=== PATIENT | female | born 1995 | race American Indian/Alaskan Native ===

== ENCOUNTER 2016-12-01 22:20 | Emergency (ER) | payer OTHER ==
[2016-12-01 22:38] VITALS: BP 116/81
--- NOTE | 2016-12-01 22:50 | EDM.PDOC ---
ED HPI GENERAL MEDICAL PROBLEM - General Chief Complaint: Flank Pain Stated Complaint: ABD/BACK SPASMS,[id number] Time Seen by Provider: 12/01/16 22:40 Source of Information: Reports: Patient History Limitations: Reports: No Limitations - History of Present Illness INITIAL COMMENTS - FREE TEXT/NARRATIVE: This 21 yo female patient reports to the ED with a 2 day history of flank pain and frequent urination. The patient reports she came into the ED this evening because the pain got too bad. The patient reports she has not been seen in the clinic and has not attempted to get a clinic appointment. The patient reports no similar symptoms in the past. The patient reports she has taken Tylenol, but has not had any pain relief. Onset Date: 11/29/16 Duration: Constant, Getting Worse Location: Reports: Abdomen, Back (bilateral flank) Quality: Reports: Ache, Sharp Severity: Severe Improves with: Reports: None Worsens with: Reports: None Associated Symptoms: Reports: No Other Symptoms Treatments MEDICATION CARE MANAGER: Reports: Acetaminophen Flank Pain Score (Numeric/FACES): 9 - Related Data Allergies Allergy/AdvReac Type Severity Reaction Status Date / Time No Known Allergies Allergy Verified 12/01/16 22:38 Home Meds: Home Meds . [No Known Home Meds] 12/01/16 [History] Past Medical History - Past Health History Medical/Surgical History: Denies Medical/Surgical History Social & Family History - Tobacco Use Smoking Status *Q: Current Every Day Smoker Years of Tobacco use: 3 Packs/Tins Daily: 4 - Caffeine Use Caffeine Use: Reports: Coffee, Energy Drinks, Soda, Tea - Recreational Drug Use Recreational Drug Use: No ED ROS GENERAL - Review of Systems Review Of Systems: ROS reveals no pertinent complaints other than HPI. ED EXAM, GI/ABD - Physical Exam Exam: See Below Exam Limited By: No Limitations General Appearance: Alert, WD/WN, Moderate Distress Eyes: Bilateral: Normal Appearance, EOMI Ears: Normal External Exam, Normal Canal, Hearing Grossly Normal, Normal TMs Nose: Normal Inspection, Normal Mucosa, No Blood Throat/Mouth: Normal Inspection, Normal Lips, Normal Teeth, Normal Gums, Normal Oropharynx, Normal Voice, No Airway Compromise Head: Atraumatic, Normocephalic Neck: Normal Inspection, Supple, Non-Tender, Full Range of Motion Respiratory/Chest: No Respiratory Distress, Lungs Clear, Normal Breath Sounds, No Accessory Muscle Use, Chest Non-Tender Cardiovascular: Normal Peripheral Pulses, Regular Rate, Rhythm, No Edema, No Gallop, No JVD, No Murmur, No Rub GI/Abdominal Exam: Normal Bowel Sounds, Soft, No Organomegaly, No Distention, No Abnormal Bruit, No Mass, Pelvis Stable, Tender (diffuse tenderness to palpation ) (Female) Exam: Deferred Rectal (Female) Exam: Deferred Back Exam: CVA Tenderness (L), CVA Tenderness (R) Extremities: Normal Inspection, Normal Range of Motion, Non-Tender, Normal Capillary Refill, No Pedal Edema Neurological: Alert, Oriented, CN II-XII Intact, Normal Cognition, Normal Gait, Normal Reflexes, No Motor/Sensory Deficits Psychiatric: Normal Affect, Normal Mood Skin Exam: Warm, Dry, Intact, Normal Color, No Rash Lymphatic: No Adenopathy Course - Vital Signs Last Recorded V/S: Last Vital Signs Temp 36.5 C 12/01/16 22:29 Pulse 96 12/01/16 22:29 Resp 17 12/01/16 22:29 BP 116/81 12/01/16 22:29 Pulse Ox 100 12/01/16 22:29 - Orders/Labs/Meds Orders: Active Orders 24 hr Category Date Time Status CULTURE URINE [RM] Stat Lab 12/02/16 00:08 Ordered Labs: Laboratory Tests 12/01/16 12/01/16 12/01/16 Range/Units 22:50 22:50 23:41 WBC 13.5 H (5.0-10.0) 10^3/uL RBC 4.60 (4.2-5.4) 10^6/uL Hgb 13.7 (12.0-16.0) g/dL Hct 40.4 (37.0-47.0) % MCV 87.8 (80-100) fL MCH 29.8 (27.0-34.0) pg MCHC 33.9 (33.0-35.0) g/dL Plt Count 211 (150-450) 10^3/uL Neut % (Auto) 74.8 (42.2-75.2) % Lymph % (Auto) 15.2 L (20.5-50.1) % [place] % (Auto) 9.1 H (2-8) % Eos % (Auto) 0.5 L (1.0-3.0) % Baso % (Auto) 0.4 (0.0-1.0) % Sodium 142 (135-145) mmol/L Potassium 3.7 (3.6-5.0) mmol/L Chloride 107 (101-111) mmol/L Carbon Dioxide 24.0 (21.0-31.0) mmol/L Anion Gap 14.7 BUN 8 (7-18) mg/dL Creatinine 0.6 (0.6-1.3) mg/dL Est Cr Clr Drug Dosing 122.69 mL/min Estimated GFR (MDRD) > 60 BUN/Creatinine Ratio 13.33 Glucose 117 H (74-105) mg/dL Calcium 9.2 (8.4-10.2) mg/dl Total Bilirubin 0.5 (0.2-1.0) mg/dL AST 27 (10-42) IU/L ALT 20 (10-60) IU/L Alkaline Phosphatase 70 (42-121) IU/L Total Protein 7.0 (6.7-8.2) g/dl Albumin 4.0 (3.2-5.5) g/dl Globulin 3.0 Albumin/Globulin Ratio 1.33 Amylase 35 (28-100) U/L Lipase 16 L (22-51) U/L Urine Color (YELLOW) Urine Appearance (CLEAR) Urine pH (5.0-9.0) Ur Specific [place] (1.005-1.030) Urine Protein (NEGATIVE) Urine Glucose (UA) (NEGATIVE) Urine Ketones (NEGATIVE) Urine Occult Blood (NEGATIVE) Urine Nitrite (NEGATIVE) Urine Bilirubin (NEGATIVE) Urine Urobilinogen (0.2-1.0) mg/dL Ur Leukocyte Esterase (NEGATIVE) Urine RBC /HPF Urine WBC (0-5/HPF) /HPF Ur Epithelial Cells /HPF Urine Bacteria (0-FEW/HPF) /HPF Urine HCG, Qual Urine Opiates Screen Negative (NEGATIVE) Ur Oxycodone Screen Negative (NEGATIVE) Urine Methadone Screen Negative (NEGATIVE) Ur Barbiturates Screen Negative (NEGATIVE) U Tricyclic Antidepress Negative (NEGATIVE) Ur Phencyclidine Scrn Negative (NEGATIVE) Ur Amphetamine Screen Negative (NEGATIVE) U Methamphetamines Scrn Negative (NEGATIVE) Urine MDMA Screen Negative (NEGATIVE) U Benzodiazepines Scrn Negative (NEGATIVE) Urine Cocaine Screen Negative (NEGATIVE) U Marijuana (THC) Screen Negative (NEGATIVE) 12/01/16 12/01/16 Range/Units 23:41 23:41 WBC (5.0-10.0) 10^3/uL RBC (4.2-5.4) 10^6/uL Hgb (12.0-16.0) g/dL Hct (37.0-47.0) % MCV (80-100) fL MCH (27.0-34.0) pg MCHC (33.0-35.0) g/dL Plt Count (150-450) 10^3/uL Neut % (Auto) (42.2-75.2) % Lymph % (Auto) (20.5-50.1) % [place] % (Auto) (2-8) % Eos % (Auto) (1.0-3.0) % Baso % (Auto) (0.0-1.0) % Sodium (135-145) mmol/L Potassium (3.6-5.0) mmol/L Chloride (101-111) mmol/L Carbon Dioxide (21.0-31.0) mmol/L Anion Gap BUN (7-18) mg/dL Creatinine (0.6-1.3) mg/dL Est Cr Clr Drug Dosing mL/min Estimated GFR (MDRD) BUN/Creatinine Ratio Glucose (74-105) mg/dL Calcium (8.4-10.2) mg/dl Total Bilirubin (0.2-1.0) mg/dL AST (10-42) IU/L ALT (10-60) IU/L Alkaline Phosphatase (42-121) IU/L Total Protein (6.7-8.2) g/dl Albumin (3.2-5.5) g/dl Globulin Albumin/Globulin Ratio Amylase (28-100) U/L Lipase (22-51) U/L Urine Color Yellow (YELLOW) Urine Appearance Turbid (CLEAR) Urine pH 7.0 (5.0-9.0) Ur Specific [place] 1.020 (1.005-1.030) Urine Protein >=300 H (NEGATIVE) Urine Glucose (UA) Negative (NEGATIVE) Urine Ketones Negative (NEGATIVE) Urine Occult Blood Large H (NEGATIVE) Urine Nitrite Negative (NEGATIVE) Urine Bilirubin Negative (NEGATIVE) Urine Urobilinogen 4.0 H (0.2-1.0) mg/dL Ur Leukocyte Esterase Moderate H (NEGATIVE) Urine RBC 5-10 H /HPF Urine WBC Packed H (0-5/HPF) /HPF Ur Epithelial Cells Moderate H /HPF Urine Bacteria Many H (0-FEW/HPF) /HPF Urine HCG, Qual Negative Urine Opiates Screen (NEGATIVE) Ur Oxycodone Screen (NEGATIVE) Urine Methadone Screen (NEGATIVE) Ur Barbiturates Screen (NEGATIVE) U Tricyclic Antidepress (NEGATIVE) Ur Phencyclidine Scrn (NEGATIVE) Ur Amphetamine Screen (NEGATIVE) U Methamphetamines Scrn (NEGATIVE) Urine MDMA Screen (NEGATIVE) U Benzodiazepines Scrn (NEGATIVE) Urine Cocaine Screen (NEGATIVE) U Marijuana (THC) Screen (NEGATIVE) Meds: Medications Discontinued Medications Generic Name Dose Route Start Last Admin Trade Name Derianq PRN Reason Stop Dose Admin Sodium Chloride 1,000 mls @ 999 mls/hr 12/01/16 23:00 12/01/16 23:07 Normal Saline IV 12/02/16 00:00 999 mls/hr .BOLUS ONE Administration Ceftriaxone Sodium 1 gm/ 50 mls @ 100 mls/hr 12/01/16 23:54 12/02/16 00:15 Sodium Chloride IV 12/02/16 00:23 100 mls/hr ONETIME ONE Administration Ketorolac Tromethamine 30 mg 12/01/16 23:54 12/02/16 00:02 Toradol IVPUSH 12/01/16 23:55 30 mg ONETIME ONE Administration Departure - Departure Time of Disposition: 00:49 Disposition: Home, Self-Care 01 Condition: Fair Clinical Impression: UTI (urinary tract infection) Qualifiers: Urinary tract infection type: site unspecified Hematuria presence: with hematuria Qualified Code(s): N39.0 - Urinary tract infection, site not specified - Discharge Information Instructions: Urinary Tract Infection, Adult, [id number] Forms: ED Department Discharge Care Plan Goals: The patient was advised of the examination, lab and CT results during the visit. The patient was given an IV dose of Toradol, IV Rocephin and oral Pyridium while in the ED. The patient was discharged with a script for Keflex ( 500 mg) #14 to take 1 by mouth 2 times per day for 7 days and Pyridium (200 mg) #6 to take 1 by mouth 3 times per day for 2 days. If the patient has any additional symptoms or concerns, the patient should follow-up with his primary care facility or return to the emergency department. - My Orders Last 24 Hours: My Active Orders 12/02/16 00:08 CULTURE URINE [RM] Stat - Assessment/Plan Last 24 Hours: My Active Orders 12/02/16 00:08 CULTURE URINE [RM] Stat
[2016-12-01] MEDS ORDERED: Sodium Chloride 0.9% 1,000 ML IV ONE (23:00)
[2016-12-01 23:16] LABS: CHLORIDE,CL 107 mmol/L (101-111); SODIUM,NA 142 mmol/L (135-145)
[2016-12-01] MEDS ORDERED: cefTRIAXone 1 GM in Sodium Chloride 0.9% 50 ML IV ONE (23:54)
[2016-12-01] MEDS ORDERED: Ketorolac 30 MG/ML SDV IVPUSH ONE (23:54)
[2016-12-02] MEDS ORDERED: Phenazopyridine 95 MG Tab PO ONE (00:48)
== END 2016-12-02 01:01 | disposition home or self-care (01) ==
LOC: DL.ED 22:20
DX: N39.0 Urinary tract infection, site not specified (principal); F17.210 Nicotine dependence, cigarettes, uncomplicated
CPT/HCPCS: 36415; 74176; 80053; 80305; 81001; 81025; 82150; 83690; 85025; 87086; 96365; 96367; 96375; 99284; A9270; J0696; J1885; J7030; J7050; 87088; 87186

== ENCOUNTER 2017-03-02 08:09 | Emergency (ER) | payer MEDICAID, OTHER ==
[2017-03-02 08:32] VITALS: BP 105/63
--- NOTE | 2017-03-02 08:43 | EDM.PDOCBH ---
ED HPI GENERAL MEDICAL PROBLEM - General Chief Complaint: MIXER WHIPPED TOPPING Problem Stated Complaint: CRAMPING, 11 WKS PG Time Seen by Provider: 03/02/17 08:30 Source of Information: Reports: Patient, RN, RN Notes Reviewed History Limitations: Reports: No Limitations - History of Present Illness INITIAL COMMENTS - FREE TEXT/NARRATIVE: Pt presents to the clinic with c/o anxiety/depression and pelvic/abdominal cramping. She is very tearful when discussing her depression and anxiety. She states she stopped taking any antidepressant, and that she is 10-11 weeks . She states she sees Melly Verduzco at [facility]. She denies suicidal ideation. When asked if she felt the abdominal cramping accompanied the anxiety, she states she feels it does. Patient denies any previous miscarriages, and has one child. LMP "November", not aware of specific date. Onset: Gradual - Related Data Allergies Allergy/AdvReac Type Severity Reaction Status Date / Time soap Allergy Hives Verified 03/02/17 08:20 Home Meds: Home Meds Pnv No.122/Iron/Folic Acid [ Multi Tablet] 1 tab PO DAILY 03/02/17 [ History] Past Medical History - Past Health History Medical/Surgical History: Denies Medical/Surgical History - Past Surgical History HEENT Surgical History: Reports: Tonsillectomy Social & Family History - Tobacco Use Smoking Status *Q: Never Smoker Years of Tobacco use: 3 Packs/Tins Daily: 4 Second Hand Smoke Exposure: No - Caffeine Use Caffeine Use: Reports: Soda, Tea - Recreational Drug Use Recreational Drug Use: No ED ROS GENERAL - Review of Systems Review Of Systems: ROS reveals no pertinent complaints other than HPI. ED EXAM, BEHAVIORAL HEALTH - Physical Exam Exam: See Below Exam Limited By: No Limitations General Appearance: Alert, WD/WN, No Apparent Distress Eye Exam: Bilateral Eye: Normal Inspection Ears: Normal External Exam, Hearing Grossly Normal Nose: Normal Inspection Throat/Mouth: Normal Inspection, Normal Voice, No Airway Compromise Head: Atraumatic, Normocephalic Neck: Normal Inspection, Supple, Non-Tender, Full Range of Motion Respiratory/Chest: No Respiratory Distress, Lungs Clear, Normal Breath Sounds, No Accessory Muscle Use, Chest Non-Tender Cardiovascular: Normal Peripheral Pulses, Regular Rate, Rhythm, No Edema, No Gallop, No JVD, No Murmur, No Rub GI/Abdominal: Normal Bowel Sounds, Soft, Non-Tender, No Distention (Female) Exam: Deferred Rectal (Female) Exam: Deferred Back Exam: Normal Inspection, Full Range of Motion Extremities: Normal Inspection, Normal Range of Motion, Non-Tender, No Pedal Edema, Normal Capillary Refill Neurological: Alert, Normal Mood/Affect, Normal Cognition, Normal Gait, No Motor /Sensory Deficits, Oriented x 3 Psychiatric: Alert, Normal Cognition, Oriented, Depressed Mood, Tearful Skin Exam: Warm, Dry, Intact, Normal color, No rash COURSE, BEHAVIORAL HEALTH COMP - Course Vital Signs: Last Vital Signs Temp 98 F 03/02/17 08:31 Pulse 72 03/02/17 08:31 Resp 18 03/02/17 08:31 BP 105/63 03/02/17 08:31 Pulse Ox 100 03/02/17 08:31 Orders, Labs, Meds: Active Orders 24 hr Category Date Time Status OB Ltd 1 or More Fetus [US] Urgent Exams 03/02/17 10:01 Taken Laboratory Tests 03/02/17 03/02/17 03/02/17 Range/Units 08:14 08:14 09:05 HCG, Quant > 1371 H (0-25) mIU/ml Beta HCG, Quant 923372 mIU/ml Urine Color Yellow (YELLOW) Urine Appearance Clear (CLEAR) Urine pH 7.0 (5.0-9.0) Ur Specific [place] 1.025 (1.005-1.030) Urine Protein Negative (NEGATIVE) Urine Glucose (UA) Negative (NEGATIVE) Urine Ketones Negative (NEGATIVE) Urine Occult Blood Negative (NEGATIVE) Urine Nitrite Negative (NEGATIVE) Urine Bilirubin Negative (NEGATIVE) Urine Urobilinogen 1.0 (0.2-1.0) mg/dL Ur Leukocyte Esterase Negative (NEGATIVE) Urine RBC 0-5 /HPF Urine WBC 0-5 (0-5/HPF) /HPF Ur Epithelial Cells Many H /HPF Urine Bacteria Rare (0-FEW/HPF) /HPF Urine Mucus Rare /LPF Urine HCG, Qual Positive Re-Assessment/Re-Exam: OB Ultrasound: See rad report Patient wants to leave prior to results on the OB ultrasound. She states we can call her on her cell phone with any results. Departure - Departure Time of Disposition: 11:35 Disposition: Home, Self-Care 01 Condition: Fair Clinical Impression: related bilateral lower abdominal cramping, antepartum, Pain of round ligament during , Depression affecting in first trimester, antepartum, Anxiety - Discharge Information Instructions: Round Ligament Pain, First Trimester of , [id number], Panic Attacks, [id number] Forms: ED Department Discharge Additional Instructions: Go to [facility] today and ask to be seen at Behavioral Health Follow up with Melly Verduzco - My Orders Last 24 Hours: My Active Orders 03/02/17 10:01 OB Ltd 1 or More Fetus [US] Urgent - Assessment/Plan Last 24 Hours: My Active Orders 03/02/17 10:01 OB Ltd 1 or More Fetus [US] Urgent
--- NOTE | 2017-03-02 12:06 | US ---
Clinical history: 21-year-old gravid 2 para 1 Female with estimated date of delivery 20 Sep 2017 and "cramping". Interpretation: Uterus enlarged with a clearly demonstrated central gestational sac, uniformly thick chorionic "rind" and a live ( heart rate 160 bpm) "active" intrauterine . [place]-rump length 4.06 cm approximates 11 week gestation. No adnexal mass lesions or free fluid in the cul-de-sac. Right ovary measures 1.5 x 1.6 x 1.5 cm Left ovary measures 1.8 x 1.8 x 2.3 cm. Placenta appears to be forming posteriorly, away from the cervical os. CONCLUSION: Single live 11 week first trimester intrauterine gestation.
== END 2017-03-02 11:44 | disposition home or self-care (01) ==
LOC: DL.ED 08:09
DX: O26.891 Other specified pregnancy related conditions, first trimester (principal); R10.31 Right lower quadrant pain; R10.32 Left lower quadrant pain; R10.2 Pelvic and perineal pain; O99.341 Other mental disorders complicating pregnancy, first trimester; F32.9 Major depressive disorder, single episode, unspecified; Z91.048 Other nonmedicinal substance allergy status; Z3A.11 11 weeks gestation of pregnancy
CPT/HCPCS: 36415; 76815; 81001; 81025; 84702; 99284

== ENCOUNTER 2017-04-22 13:47 | Emergency (ER) | payer MEDICAID ==
[2017-04-22 15:02] VITALS: BP 107/52
--- NOTE | 2017-04-22 17:47 | EDM.PDOC ---
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 She has had blood with wiping x1 today. Her last last menstrual period was December 15 with an EDC of September 20. She is approximately 18 weeks this week. Onset: Today Duration: Constant Location: Reports: Abdomen Quality: Reports: Ache Severity: Moderate Improves with: Reports: None Worsens with: Reports: None Associated Symptoms: Reports: No Other Symptoms Treatments DATA BASE ADMINISTRATOR: Reports: NSAIDS Lower Abdomen Pain Score (Numeric/FACES): 9 - Related Data Allergies Allergy/AdvReac Type Severity Reaction Status Date / Time soap Allergy Hives Verified 04/22/17 14:07 Home Meds: Home Meds Pnv No.122/Iron/Folic Acid [ Multi Tablet] 1 tab PO DAILY 03/02/17 [ History] Past Medical History - Past Health History Medical/Surgical History: Denies Medical/Surgical History - Past Surgical History HEENT Surgical History: Reports: Tonsillectomy Social & Family History - Tobacco Use Smoking Status *Q: Current Every Day Smoker Years of Tobacco use: 4 Packs/Tins Daily: 0.3 Second Hand Smoke Exposure: No - Caffeine Use Caffeine Use: Reports: Soda - Recreational Drug Use Recreational Drug Use: No ED ROS GENERAL - Review of Systems Review Of Systems: ROS reveals no pertinent complaints other than HPI. ED EXAM - Physical Exam Exam: See Below Exam Limited By: No Limitations General Appearance: Alert, WD/WN, No Apparent Distress Eye Exam: Bilateral Eye: Normal Inspection Ears: Normal External Exam, Normal Canal, Hearing Grossly Normal, Normal TMs Nose: Normal Inspection, Normal Mucosa, No Blood Throat/Mouth: Normal Inspection, Normal Lips, Normal Teeth, Normal Gums, Normal Oropharynx, Normal Voice, No Airway Compromise Head: Atraumatic Neck: Normal Inspection, Supple, Non-Tender, Full Range of Motion Respiratory/Chest: No Respiratory Distress, Lungs Clear, Normal Breath Sounds, No Accessory Muscle Use, Chest Non-Tender Cardiovascular: Normal Peripheral Pulses, Regular Rate, Rhythm, No Edema, No Gallop, No JVD, No Murmur, No Rub GI/Abdominal Exam: Other (RLQ and upper quadrant. Round ligament pain.) Rectal Exam: Deferred Heart Tones: Present Heart Tones per Min: 152 Movement: Not Appreciated Back Exam: Normal Inspection, Full Range of Motion, NT Extremities: Normal Inspection, Normal Range of Motion, Non-Tender, Normal Capillary Refill, No Pedal Edema Neurological: Alert, Oriented, CN II-XII Intact, Normal Cognition, Normal Gait, Normal Reflexes, No Motor/Sensory Deficits Psychiatric: Normal Affect, Normal Mood Skin Exam: Warm Lymphatic: No Adenopathy Course - Vital Signs Last Recorded V/S: Last Vital Signs Temp 98.0 F 04/22/17 15:01 Pulse 64 04/22/17 15:01 Resp 18 04/22/17 15:01 BP 107/52 L 04/22/17 15:01 Pulse Ox 100 04/22/17 15:01 - Orders/Labs/Meds Labs: Laboratory Tests 04/22/17 Range/Units 13:52 Urine Color Yellow (YELLOW) Urine Appearance Clear (CLEAR) Urine pH 6.5 (5.0-9.0) Ur Specific [place] 1.025 (1.005-1.030) Urine Protein Negative (NEGATIVE) Urine Glucose (UA) Negative (NEGATIVE) Urine Ketones Negative (NEGATIVE) Urine Occult Blood Trace-intact H (NEGATIVE) Urine Nitrite Negative (NEGATIVE) Urine Bilirubin Negative (NEGATIVE) Urine Urobilinogen 1.0 (0.2-1.0) mg/dL Ur Leukocyte Esterase Negative (NEGATIVE) Urine RBC 0-5 /HPF Urine WBC 0-5 (0-5/HPF) /HPF Ur Epithelial Cells Many H /HPF Urine Bacteria Moderate H (0-FEW/HPF) /HPF Urine Mucus Few H /LPF Urinalysis Comment Departure - Departure Time of Disposition: 15:08 Disposition: Home, Self-Care 01 Condition: Good Clinical Impression: Pain of round ligament during - Discharge Information Instructions: Round Ligament Pain Forms: ED Department Discharge Additional Instructions: Rest, Drink plenty of water Lifting limit [address] Mac's office on Monday. He will order an ultrasound to be done in [place] next week. [phone] Follow up with your primary care facility I have read and agree with the documentation that has been completed regarding this visit. By signing this record, I attest that the documentation was completed in my physical presence and is an accurate record of the encounter.
== END 2017-04-22 15:09 | disposition home or self-care (01) ==
LOC: DL.ED 13:47
DX: O26.892 Other specified pregnancy related conditions, second trimester (principal); R10.2 Pelvic and perineal pain; O99.332 Smoking (tobacco) complicating pregnancy, second trimester; F17.210 Nicotine dependence, cigarettes, uncomplicated; Z3A.18 18 weeks gestation of pregnancy; Z91.09 Other allergy status, other than to drugs and biological substances
CPT/HCPCS: 81001; 99284

== ENCOUNTER 2019-06-14 09:06 | Inpatient (IN) | payer MEDICAID ==
[2019-06-14] MEDS ORDERED: fentaNYL 100 MCG/2 ML SDV IVPUSH ONE (09:31)
[2019-06-14] MEDS: Lactated Ringers 1,000 ML IV SCH ×2 (09:55→10:35)
[2019-06-14] MEDS ORDERED: Ondansetron 4 MG/2 ML SDV IVPUSH ONE (09:59)
[2019-06-14] MEDS ORDERED: Misoprostol 400 MCG (4 X 100 MCG TAB) RECTAL PRN ×2 (10:35→19:31)
[2019-06-14] MEDS ORDERED: Methylergonovine 0.2 MG/1 ML Amp IM PRN (10:35)
[2019-06-14] MEDS ORDERED: Lactated Ringers 1,000 ML IV ONE (10:35)
[2019-06-14] MEDS ORDERED: Ondansetron 4 MG/2 ML SDV IVPUSH PRN (10:35)
[2019-06-14] MEDS ORDERED: Sodium Chloride 0.9% 10 ML Syringe FLUSH PRN ×2 (10:35→19:31)
[2019-06-14] MEDS ORDERED: Carboprost Tromethamine 250 MCG/1 ML Amp IM PRN ×2 (10:35→19:31)
[2019-06-14] MEDS ORDERED: Lidocaine 1% 30 ML SDV INJECT PRN (10:35)
[2019-06-14] MEDS ORDERED: Tranexamic Acid 1,000 MG in Sodium Chloride 0.9% 100 ML IV PRN ×2 (10:35→19:31)
[2019-06-14] MEDS ORDERED: Oxytocin/Normal Saline 30 UNIT/500 ML BAG IV SCH ×2 (10:45)
[2019-06-14] MEDS ORDERED: Lactated Ringers 1,000 ML IV SCH (10:45)
--- NOTE | 2019-06-14 11:02 | PCM.SN ---
- Free Text/Narrative Note: OB History and Physical 06/14/19 Chief Complaint: not feeling well HPI: 23 y.o. year old at 38w1d (Estimated Date of Delivery: 06/27/19) who presents with nausea, diarrhea, and generally not feeling well. She feels like she picked up the flu from one of her kids in class. She reports active movement. She has noted more cramping/leatha. She was given IV fluids and nausea medications with some relief. Triage labs with elevated blood pressure showed pre-eclampsia so she was admitted for induction. ROS: Negative for headache, fever, chills, hematuria, dysuria, loss of fluid or bleeding per vagina. Allergies: NKDA Medications: vitamins Medical Hx: unremarkable Surgical Hx: none Family Hx: mom was killed by a drunk catering truck driver, dad had abdominal aneurysm. No known bleeding or clotting disorders. No known genetic disorders OB Hx: 01/07/14 [id number] vaginal delivery after AROM and labor for 6 hours. 08/30/17 [id number] induction for IUGR at 35w Social Hx: current cigarette smoker, denies drinking or recreational drug use. Labs: Blood Type: A Positive Rubella: Immune HBSAg: Nonreactive GBS: Negative Gonorrhea/Chlamydia: Not Detected HIV: Nonreactive RPR: Nonreactive Hep C: Nonreactive Physical Exam: Vitals: BP 140/98, HR 108, Temp 98.1 Gen: No distress CV: Well-perfused, 2+ distal pulses, regular rate and rhythm, no audible murmurs Resp: Non-labored, symmetrical chest expansion, clear to auscultation Abd: gravid, soft, non tender Ext: Moves all extremities, no edema. SVE: 3/50/-2 FHT: 130, moderate variability, accelerations present, no decelerations noted CTX: Q 1-4 mins Assessment: 23 y.o. year old at 38w1d who presents with pre-eclampsia. Cat I Strip. Plan: - admit to labor and delivery - proceed with induction of labor - may have intrathecal when indicated, if desired. - will follow closely Charmaine Delatorre MD
[2019-06-14] MEDS ORDERED: fentaNYL 100 MCG/2 ML SDV IVPUSH PRN (13:10)
[2019-06-14] MEDS ORDERED: Calcium Carbonate 500 MG Tab.Chew PO ONE (13:50)
[2019-06-14] MEDS ORDERED: EPINEPHrine 1 MG/1 ML Amp ONE (17:39)
[2019-06-14] MEDS ORDERED: fentaNYL 100 MCG/2 ML SDV ONE (17:39)
--- NOTE | 2019-06-14 18:06 | PCM.PRNOTE ---
- Free Text/Narrative Note: Requested to provide analgesia to full term patient in severe pain. Upon entering the room, patient is sitting on edge of bed complaining of severe abdominal/pelvic pain and discomfort. Procedure was discussed with patient including adverse outcomes and expectations. Pt consented to analgesia, SAB/ IT. Pt placed into a proper sitting position. Landmarks for SAB/IT were identified and marked. Hands were washed and appropriate PPE was applied. Back was prepped with betadine x3. A sterile, transparent, fenestrated drape was applied. Excess betadine was removed. Using 3 mL of a 1% lidocaine solution , a skin wheel was placed at the L2/L3 interspace. A 24 ga (4 inch) Pencan spinal needle was inserted until positive for CSF. Negative for heme or paresthesias. Injected fentanyl 30 mcg, sufentanil 25 mcg, and 7.5 mg of a 0.75 % bupivacaine solution with an epi wash. Pt was placed left lateral position for approximately 20 minutes. There were zero complications or adverse outcomes. Will continue to monitor. Procedure Date & Time: 06/14/19 [id number]
[2019-06-14] MEDS ORDERED: Benzocaine/Menthol 20%-0.5% Spray 56 GM Canister TOP PRN (19:31)
[2019-06-14] MEDS ORDERED: Docusate Sodium 100 MG Cap PO PRN (19:31)
[2019-06-14] MEDS ORDERED: Acetaminophen 325 MG Tab PO PRN (19:31)
[2019-06-14] MEDS ORDERED: Simethicone 80 MG Tab.Chew PO PRN (19:31)
[2019-06-14] MEDS ORDERED: Zolpidem 5 MG Tab PO PRN (19:31)
[2019-06-14] MEDS ORDERED: Oxytocin 10 Units/1 ML SDV IM PRN (19:31)
[2019-06-15] MEDS: Ibuprofen 800 MG Tab PO PRN ×3 (01:59→20:13)
[2019-06-15] MEDS: Acetaminophen 325 MG Tab PO PRN ×3 (05:10→17:57)
[2019-06-15] MEDS: Prenatal Multivitamin with Calcium/Folic Acid/Iron Tab PO SCH (08:40)
[2019-06-15] MEDS: Ferrous Sulfate 325 MG Tab PO SCH ×2 (12:01→17:57)
--- NOTE | 2019-06-15 14:15 | PN ---
DATE: 06/15/2019 LOCATION: [facility]. SUBJECTIVE: The patient is day 1 status post vaginal delivery. She was induced for mild preeclampsia. Protein-creatinine ratio was 0.37. She was induced at term. Her and baby are both doing well. Bleeding is minimal. When the patient originally presented, she did have flu A and B swabs done, those were negative. The patient is a G3, P3. PHYSICAL EXAMINATION: Vital Signs: The patient's blood pressure 125 to 136 systolic over 79 to 83 diastolic, respiratory rate 16, heart rate 93 to 101, O2 saturation 100%. The patient is afebrile. Abdomen: Fundus is firm, below the umbilicus. Extremities: Have mild edema. LABORATORY DATA: Predelivery hemoglobin was 12.8, platelets were 181. This morning, white blood cell count is 9.5, hemoglobin 7.9, platelets 137. The patient's blood type is A positive. ASSESSMENT AND PLAN: day 1 status post vaginal delivery at term, induced for mild preeclampsia. Her preeclampsia definitely appears to be resolving. Her and baby were both doing well. She does have some significant blood loss anemia; therefore, we did start iron twice a day. We will continue care, likely discharge tomorrow. [facility] /[id number]
--- NOTE | 2019-06-15 14:51 | DEL ---
DATE: The patient delivered on 06/14/2019, at [facility]. PREDELIVERY DIAGNOSIS: This is a G3, P2, at 38-plus weeks' gestational age, induced for mild preeclampsia. Delivery was a normal spontaneous vaginal delivery. Delivering clinician was Dr. Mac. FINDINGS: There was a viable . score, 8 and 9. Baby did weigh 3765 g. Placenta was delivered intact. A second-degree midline laceration was repaired in the usual fashion. Blood loss was normal for vaginal delivery. PROCEDURE IN DETAIL: The patient had been diagnosed with preeclampsia earlier today. It was mild. No magnesium seizure prophylaxis were used. The Pitocin was started. After the patient received intrathecal, AROM was performed , which she quickly became complete and was able to push the 's head out without any difficulties. Shoulder was delivered with some gentle traction. The was placed on the maternal abdomen. The cord was cut and clamped. The cord blood was obtained. The placenta was then delivered with some uterine massage and gentle traction. The placenta was delivered intact. Third-stage Pitocin was started. Blood loss was completely normal for a vaginal delivery. Uterus became firm. Then, a 3-0 Vicryl was used to repair the midline second- degree laceration in the usual fashion. At the end of the procedure, mom and baby were both doing well. Baby weighed 3765 g. score were 8 and 9. [facility] /[id number] MTDD
[2019-06-16] MEDS: Acetaminophen 325 MG Tab PO PRN ×2 (00:44→04:54)
[2019-06-16] MEDS: Ibuprofen 800 MG Tab PO PRN (04:55)
[2019-06-16 07:26] VITALS: BP 129/85; PULSE 86
[2019-06-16] MEDS: Ferrous Sulfate 325 MG Tab PO SCH (08:20)
[2019-06-16] MEDS: Prenatal Multivitamin with Calcium/Folic Acid/Iron Tab PO SCH (08:20)
[2019-06-16] MEDS ORDERED: fentaNYL 100 MCG/2 ML SDV ITHECAL ONE (11:44)
[2019-06-16] MEDS ORDERED: EPINEPHrine 1 MG/1 ML Amp ONE (11:44)
--- NOTE | 2019-06-16 12:43 | DISCH ---
DATE: 06/16/2019 LOCATION: [facility]. SUBJECTIVE: The patient is day 2 status post vaginal delivery with resolving mild preeclampsia. Mom and baby are both doing well. Lochia is minimal. She is now a G3, P3. PHYSICAL EXAMINATION: Vital Signs: The patient is afebrile, heart rate 75 to 86, blood pressure 124 to 129 systolic over 72 to 85 diastolic, respiratory rate 16 to 18, O2 saturation 99% to 100%. The patient's blood type is A positive. Abdomen: Fundus is firm, below the umbilicus. Extremities: Have mild edema. No tenderness. LABORATORY DATA: Predelivery hemoglobin was 12.8. Hemoglobin this morning is stable at 8.5, white blood cell count 12.1, and platelets are now up to 141. ASSESSMENT AND PLAN: day 2 status post vaginal delivery with resolving mild preeclampsia. We will discharge this patient to home. She will follow up with her primary in 6 weeks, and she will continue her iron. [facility] /[id number]
== END 2019-06-16 11:45 | disposition home or self-care (01) | DRG 807 ==
LOC: DL.OBCHECK 09:06 → DL.OB 10:41 → UNDOADMOB 10:45 → DL.OB 10:45 → OBSVTOIN 19:19 → DL.OB 19:19
PROVIDERS: ADMIT Family Medicine; ATTEND Family Medicine
PROC: 10E0XZZ Delivery of Products of Conception, External Approach (ICD-10-PCS; principal; 2019-06-14)
PROC: 0KQM0ZZ Repair Perineum Muscle, Open Approach (ICD-10-PCS; 2019-06-14)
PROC: 3E0R3BZ Introduction of Anesthetic Agent into Spinal Canal, Percutaneous Approach (ICD-10-PCS; 2019-06-14)
PROC: 10907ZC Drainage of Amniotic Fluid, Therapeutic from Products of Conception, Via Natural or Artificial Opening (ICD-10-PCS; 2019-06-14)
DX: O14.94 Unspecified pre-eclampsia, complicating childbirth (principal); Z37.0 Single live birth; O99.334 Smoking (tobacco) complicating childbirth; F17.210 Nicotine dependence, cigarettes, uncomplicated; O99.03 Anemia complicating the puerperium; D50.0 Iron deficiency anemia secondary to blood loss (chronic); O70.1 Second degree perineal laceration during delivery; Z3A.38 38 weeks gestation of pregnancy
CPT/HCPCS: 36415; 59409; 81003; 82565; 82570; 83615; 84156; 84450; 84460; 84520; 84550; 85027; 87804; A9270-GY; J0171; J2405; J2590; J3010; J7120

== ENCOUNTER 2020-02-28 09:57 | Emergency (ER) | payer MEDICAID ==
--- NOTE | 2020-02-28 11:17 | EDM.PDOC ---
ED HPI GENERAL MEDICAL PROBLEM - General Stated Complaint: COVID+ Time Seen by Provider: 02/28/20 10:50 Source of Information: Reports: Patient, RN, RN Notes Reviewed History Limitations: Reports: No Limitations - History of Present Illness INITIAL COMMENTS - FREE TEXT/NARRATIVE: Patient presents to the ED via personal vehicle accompanying her two young children with complaints of shortness of breath. She states she was notified she was positive for COVID yesterday via a [employer] test. She reports her test was performed 02/25/2020 at a mass testing event. She states her only symptoms at the time of testing was loss of smell. She states she currently feels short of breath and is worried she is "...going to stop breathing with two kids to take care of." She does attest to chest tightness, palpitations, nausea, and diarrhea. She denies fever, shaking chills, vision changes, headache, chest pain, vomiting, dysuria, hematuria, melena, or hematochezia. She states she is worried about her two young children and would like to have them receive a rapid COVID test today. She reports she is a single mother with no family in the area; she is awaiting confirmation from [facility] for COVID assistance before they will help with her groceries and formula. 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: Musculoskeletal History: Reports: None Neurological History: Reports: None Psychiatric History: Reports: Anxiety, Bipolar, Depression Endocrine/Metabolic History: Reports: None Hematologic History: Reports: Anemia Immunologic History: Reports: None Oncologic (Cancer) History: Reports: None Dermatologic History: Reports: None - Infectious Disease History Infectious Disease History: Reports: None - Past Surgical History HEENT Surgical History: Reports: Adenoidectomy, Tonsillectomy GI Surgical History: Reports: Other (See Below) Other GI Surgeries/Procedures: abdominal surgery to remove foreign objects from stomach. Female Surgical History: Reports: None Endocrine Surgical History: Reports: None Social & Family History - Family History Family Medical History: Noncontributory - Caffeine Use Caffeine Use: Reports: Soda - Living Situation & Occupation Living situation: Reports: , with Family Occupation: Employed ED ROS GENERAL - Review of Systems Review Of Systems: Comprehensive ROS is negative, except as noted in HPI. ED EXAM, GENERAL - Physical Exam Exam: See Below Exam Limited By: No Limitations General Appearance: Alert, WD/WN, Mild Distress Eye Exam: Bilateral Eye: EOMI, Normal Inspection, PERRL Ears: Normal External Exam, Normal Canal, Hearing Grossly Normal, Normal TMs Ear Exam: Bilateral Ear: Auricle Normal, Canal Normal, TM normal Nose: Normal Inspection, Normal Mucosa, No Blood, Clear Rhinorrhea Throat/Mouth: Normal Voice, No Airway Compromise, Inflammation (With Erythema). No: Normal Teeth (Multiple missing teeth and caps) Neck: Normal Inspection, Supple, Non-Tender, Full Range of Motion. No: Lymphadenopathy (L), Lymphadenopathy (R) Respiratory/Chest: No Respiratory Distress, Normal Breath Sounds, No Accessory Muscle Use, Chest Non-Tender, Wheezing (Inspiratory to bilateral upper lobes) Cardiovascular: Normal Peripheral Pulses, No Edema, No Gallop, No JVD, No Murmur, No Rub, Tachycardia Peripheral Pulses: 2+: Radial (L), Radial (R) GI/Abdominal: Normal Bowel Sounds, Soft, Non-Tender Back Exam: Normal Inspection, Full Range of Motion Extremities: Normal Inspection, Normal Range of Motion, Non-Tender, No Pedal Edema, Normal Capillary Refill Neurological: Alert, Oriented, CN II-XII Intact, Normal Cognition, Normal Gait, No Motor/Sensory Deficits Psychiatric: Anxious, Tearful Skin Exam: Warm, Dry, Intact, Normal Color, No Rash Course - Vital Signs Last Recorded V/S: Last Vital Signs Temp 98.1 F 02/28/20 10:15 Pulse 78 02/28/20 10:15 Resp 14 02/28/20 10:15 BP 124/68 02/28/20 10:15 Pulse Ox 100 02/28/20 10:15 Departure - Departure Time of Disposition: 11:27 Disposition: Home, Self-Care 01 Condition: Good Clinical Impression: COVID-19 virus infection - Discharge Information *PRESCRIPTION DRUG MONITORING PROGRAM REVIEWED*: Not Applicable *COPY OF PRESCRIPTION DRUG MONITORING REPORT IN PATIENT ELIANA: Not Applicable Instructions: COVID-19 Frequently Asked Questions, COVID-19: How to Protect Yourself and Others - [facility] Additional Instructions: Rx: Albuterol inhaler Rx: Zofran Drink plenty of water to stay hydrated. Sleep with a humidifier on at night. Take ibuprofen (Motrin/Advil) 400mg every 6 hours for fever or muscle aches. Take acetaminophen (Tylenol) 650mg every 6 hours for fever of muscle aches. You can stagger these medications so you are taking a dose every 3 hours. Juve weight is 22 lbs: Dose Tylenol and Motrin per manufactures packaging. Elmo weight is 26 lbs: Dose Tylenol and Motrin per manufactures packaging. They will only require medication is they experience cold-like symptoms or fever. Return to you primary care provider or the emergency department if you experience worsening shortness of breath or chest pain. Juve may have some noisy sounds when he sleep as he is teething right now and is producing more saliva than normal. If you are concerned, follow up! Sepsis Event Note (ED) - Focused Exam Vital Signs: Vital Signs Temp Pulse Resp BP Pulse Ox 02/28/20 10:15 98.1 F 78 14 124/68 100
[2020-02-28 11:52] VITALS: BP 124/68; PULSE 78
== END 2020-02-28 12:08 | disposition home or self-care (01) ==
LOC: DL.ED 09:57
DX: U07.1 COVID-19 (principal)
CPT/HCPCS: 99284

== ENCOUNTER 2020-03-24 09:00 | Emergency (ER) | payer MEDICAID, OTHER ==
[2020-03-24 09:12] VITALS: BP 137/70; PULSE 76
--- NOTE | 2020-03-24 09:55 | EDM.PDOC ---
ED HPI GENERAL MEDICAL PROBLEM - General Chief Complaint: General Stated Complaint: GOT POKED WITH A USED SIRENGE AT WORK Time Seen by Provider: 03/24/20 09:15 Source of Information: Reports: Patient, RN, RN Notes Reviewed History Limitations: Reports: No Limitations - History of Present Illness INITIAL COMMENTS - FREE TEXT/NARRATIVE: Patient presents to the ED via personal vehicle with complaints of a needle stick of unknown origin. 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 The patient states she is unsure of the mechanism of the needle stick, but notes she was using the restroom and felt a mink rancher her hand. She saw a "hollow tip needle" and believes that to be what poked her. The patient reports she washed the area with soap and water following the injury. She states she is up to date on all childhood vaccinations, including hepatitis B. She states she does not have a known history of HIV or hepatitis C infection. - Related Data Allergies Allergy/AdvReac Type Severity Reaction Status Date / Time No Known Allergies Allergy Verified 03/24/20 09:09 Home Meds: Home Meds . 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: Musculoskeletal History: Reports: None Neurological History: Reports: None Psychiatric History: Reports: Anxiety, Bipolar, Depression Endocrine/Metabolic History: Reports: None Hematologic History: Reports: Anemia Immunologic History: Reports: None Oncologic (Cancer) History: Reports: None Dermatologic History: Reports: None - Infectious Disease History Infectious Disease History: Reports: None - Past Surgical History Head Surgeries/Procedures: Reports: None HEENT Surgical History: Reports: Adenoidectomy, Tonsillectomy GI Surgical History: Reports: Other (See Below) Other GI Surgeries/Procedures: abdominal surgery to remove foreign objects from stomach. Female Surgical History: Reports: None Endocrine Surgical History: Reports: None Social & Family History - Family History Family Medical History: No Pertinent Family History - Tobacco Use Tobacco Use Status *Q: Never Tobacco User Second Hand Smoke Exposure: No - Caffeine Use Caffeine Use: Reports: None - Recreational Drug Use Recreational Drug Use: No - Living Situation & Occupation Living situation: Reports: , with Family Occupation: Employed ED ROS GENERAL - Review of Systems Review Of Systems: Comprehensive ROS is negative, except as noted in HPI. ED EXAM, GENERAL - Physical Exam Exam: See Below Exam Limited By: No Limitations General Appearance: Alert, WD/WN, No Apparent Distress Neurological: Alert, Oriented, CN II-XII Intact, Normal Cognition, Normal Gait, No Motor/Sensory Deficits Psychiatric: Normal Affect, Normal Mood Skin Exam: Warm, Dry, Normal Color, No Rash, Wound/Incision (Pinpoint wound to right snuffbox. Clean and dry. No drainage.). No: Ecchymosis, Erythema, Mottled, Pallor, Petechiae Course - Vital Signs Last Recorded V/S: Last Vital Signs Temp 97.6 F 03/24/20 09:09 Pulse 76 03/24/20 09:09 Resp 16 03/24/20 09:09 BP 137/70 03/24/20 09:09 Pulse Ox 100 03/24/20 09:09 - Orders/Labs/Meds Orders: Active Orders 24 hr Category Date Time Status HEP C VIRUS AB [REF] Stat Lab 03/24/20 10:06 Received HEPATITIS B SURF AB QUANT [REF] Stat Lab 03/24/20 10:06 Received Labs: Laboratory Tests 03/24/20 Range/Units 10:06 HIV-1 Antibody Non-reactive (NONREACTIVE) HIV-2 Antibody Non-reactive (NONREACTIVE) HIV P24 Antigen Non-reactive (NONREACTIVE) - Re-Assessments/Exams Free Text/Narrative Re-Assessment/Exam: 03/24/20 Workmen's Comp paperwork filled out. Hepatitis B, hepatitis C, and HIV titers drawn. Departure - Departure Time of Disposition: 11:06 Disposition: Home, Self-Care 01 Condition: Good Clinical Impression: Needle stick injury, Encounter for human immunodeficiency virus test, Encounter for HCV screening test for low risk patient, Need for hepatitis B screening test - Discharge Information *PRESCRIPTION DRUG MONITORING PROGRAM REVIEWED*: Not Applicable *COPY OF PRESCRIPTION DRUG MONITORING REPORT IN PATIENT ELIANA: Not Applicable Forms: ED Department Discharge Additional Instructions: You will receive notification of today's results via [facility]. Follow the instructions of your Work-Comp process. Sepsis Event Note (ED) - Evaluation Sepsis Screening Result: No Definite Risk - Focused Exam Vital Signs: Vital Signs Temp Pulse Resp BP Pulse Ox 03/24/20 09:09 97.6 F 76 16 137/70 100 - My Orders Last 24 Hours: My Active Orders 03/24/20 10:06 HEP C VIRUS AB [REF] Stat HEPATITIS B SURF AB QUANT [REF] Stat - Assessment/Plan Last 24 Hours: My Active Orders 03/24/20 10:06 HEP C VIRUS AB [REF] Stat HEPATITIS B SURF AB QUANT [REF] Stat
== END 2020-03-24 11:13 | disposition home or self-care (01) ==
LOC: DL.ED 09:00
DX: S61.431A Puncture wound without foreign body of right hand, initial encounter (principal); Z11.4 Encounter for screening for human immunodeficiency virus [HIV]; Z11.59 Encounter for screening for other viral diseases; W46.0XXA Contact with hypodermic needle, initial encounter; Y99.0 Civilian activity done for income or pay
CPT/HCPCS: 36415; 86317; 86803; 87389; 99282; 99283

== ENCOUNTER 2020-04-19 16:30 | Emergency (ER) | payer MEDICAID | END 2020-04-19 16:45 | LOC: DL.ED 16:30 | DX: Z53.21 Procedure and treatment not carried out due to patient leaving prior to being seen by health care provider (principal) ==

== ENCOUNTER 2020-09-12 15:48 | Emergency (ER) | payer MEDICAID ==
[2020-09-12 17:46] LABS: ANION GAP 13.5 mEq/L (7-13); CHLORIDE,CL 103 mmol/L (98-107); SODIUM,NA 139 mmol/L (136-145)
--- NOTE | 2020-09-12 19:51 | EDM.PDOC ---
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 This patient is 4 para 3. She leaves that she is about 1 week gestationally . Today she started having some pretty severe lower abdominal cramp that went on for the past couple of hours. She has had no vaginal bleeding. No weakness dizziness lightheadedness. No palpitations no syncope. No other abdominal pain. No hematuria dysuria or urinary frequency. No black or tarry stools. She never had any cramping like this with her other pregnancies. Her cramping has almost completely resolved upon arrival in the emergency department. - Related Data Allergies Allergy/AdvReac Type Severity Reaction Status Date / Time No Known Allergies Allergy Verified 03/24/20 09:09 Home Meds: Home Meds . 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: Musculoskeletal History: Reports: None Neurological History: Reports: None Psychiatric History: Reports: Anxiety, Bipolar, Depression Endocrine/Metabolic History: Reports: None Hematologic History: Reports: Anemia Immunologic History: Reports: None Oncologic (Cancer) History: Reports: None Dermatologic History: Reports: None - Infectious Disease History Infectious Disease History: Reports: None - Past Surgical History Head Surgeries/Procedures: Reports: None HEENT Surgical History: Reports: Adenoidectomy, Tonsillectomy GI Surgical History: Reports: Other (See Below) Other GI Surgeries/Procedures: abdominal surgery to remove foreign objects from stomach. Female Surgical History: Reports: None Endocrine Surgical History: Reports: None Social & Family History - Family History Family Medical History: No Pertinent Family History - Tobacco Use Tobacco Use Status *Q: Never Tobacco User - Caffeine Use Caffeine Use: Reports: None - Recreational Drug Use Recreational Drug Use: No - Living Situation & Occupation Living situation: Reports: , with Family Occupation: Employed ED ROS GENERAL - Review of Systems Review Of Systems: Comprehensive ROS is negative, except as noted in HPI. ED EXAM - Physical Exam Exam: See Below Exam Limited By: No Limitations General Appearance: Alert, WD/WN, No Apparent Distress Respiratory/Chest: No Respiratory Distress, Lungs Clear Cardiovascular: Normal Peripheral Pulses, Regular Rate, Rhythm GI/Abdominal Exam: Normal Bowel Sounds, Soft, Non-Tender Rectal Exam: Deferred Heart Tones: Not [place] Back Exam: Normal Inspection, Full Range of Motion Extremities: Normal Inspection, Normal Range of Motion, No Pedal Edema, Normal Capillary Refill Neurological: Alert, Oriented, No Motor/Sensory Deficits Psychiatric: Normal Affect, Normal Mood Skin Exam: Warm, Dry, Intact, Normal Color, No Rash Course - Vital Signs Last Recorded V/S: Last Vital Signs Temp 97.4 F 09/12/20 19:55 Pulse 68 09/12/20 19:55 Resp 16 09/12/20 19:55 BP 133/66 09/12/20 19:55 Pulse Ox 100 09/12/20 19:55 - Orders/Labs/Meds Orders: Active Orders 24 hr Category Date Time Status OB Ltd 1 or More Fetus [US] Urgent Exams 09/12/20 18:17 Ordered CHLAMYDIA AND GONORRHEA BY TMA Stat Lab 09/12/20 16:00 Received Labs: Laboratory Tests 09/12/20 09/12/20 09/12/20 Range/Units 16:00 16:00 17:14 WBC (5.0-10.0) 10^3/uL RBC (4.2-5.4) 10^6/uL Hgb (12.0-16.0) g/dL Hct (37.0-47.0) % MCV (80-100) fL MCH (27.0-34.0) pg MCHC (33.0-35.0) g/dL Plt Count (150-450) 10^3/uL Neut % (Auto) (42.2-75.2) % Lymph % (Auto) (20.5-50.1) % [place] % (Auto) (2-8) % Eos % (Auto) (1.0-3.0) % Baso % (Auto) (0.0-1.0) % Sodium (136-145) mmol/L Potassium (3.5-5.1) mmol/L Chloride (98-107) mmol/L Carbon Dioxide (21-32) mmol/L Anion Gap (7-13) mEq/L BUN (7-18) mg/dL Creatinine (0.55-1.02) mg/dL Est Cr Clr Drug Dosing mL/min Estimated GFR (MDRD) BUN/Creatinine Ratio (No establ ref range) Glucose (70-99) mg/dL Calcium (8.5-10.1) mg/dL Total Bilirubin (0.2-1.0) mg/dL AST (15-37) U/L ALT (14-59) U/L Alkaline Phosphatase (46-116) U/L Total Protein (6.4-8.2) g/dL Albumin (3.4-5.0) g/dL Globulin Albumin/Globulin Ratio HCG, Quant 724 H (0-6) mIU/mL Urine Color Yellow (YELLOW) Urine Appearance Clear (CLEAR) Urine pH 6.0 (5.0-9.0) Ur Specific [place] >= 1.030 (1.005-1.030) Urine Protein Negative (NEGATIVE) Urine Glucose (UA) Negative (NEGATIVE) Urine Ketones Negative (NEGATIVE) Urine Occult Blood Trace-intact H (NEGATIVE) Urine Nitrite Negative (NEGATIVE) Urine Bilirubin Negative (NEGATIVE) Urine Urobilinogen 0.2 (0.2-1.0) mg/dL Ur Leukocyte Esterase Negative (NEGATIVE) Urine RBC 0-5 /HPF Urine WBC 0-5 (0-5/HPF) /HPF Ur Epithelial Cells Many H (NOT SEEN) /HPF Amorphous Sediment Few (NOT SEEN) /HPF Urine Bacteria Rare (0-FEW/HPF) /HPF Urine Mucus Few H (NOT SEEN) /LPF Urine HCG, Qual Positive Blood Type 09/12/20 09/12/20 09/12/20 Range/Units 17:14 17:14 17:14 WBC 9.2 (5.0-10.0) 10^3/uL RBC 5.27 (4.2-5.4) 10^6/uL Hgb 13.6 D (12.0-16.0) g/dL Hct 41.8 (37.0-47.0) % MCV 79.3 L (80-100) fL MCH 25.8 L (27.0-34.0) pg MCHC 32.5 L (33.0-35.0) g/dL Plt Count 252 D (150-450) 10^3/uL Neut % (Auto) 62.0 (42.2-75.2) % Lymph % (Auto) 25.4 (20.5-50.1) % [place] % (Auto) 11.0 H (2-8) % Eos % (Auto) 1.1 (1.0-3.0) % Baso % (Auto) 0.5 (0.0-1.0) % Sodium 139 (136-145) mmol/L Potassium 3.5 (3.5-5.1) mmol/L Chloride 103 (98-107) mmol/L Carbon Dioxide 26 (21-32) mmol/L Anion Gap 13.5 H (7-13) mEq/L BUN 15 (7-18) mg/dL Creatinine 0.71 (0.55-1.02) mg/dL Est Cr Clr Drug Dosing 104.60 mL/min Estimated GFR (MDRD) > 60 BUN/Creatinine Ratio 21.1 (No establ ref range) Glucose 92 (70-99) mg/dL Calcium 8.9 (8.5-10.1) mg/dL Total Bilirubin 0.1 L (0.2-1.0) mg/dL AST 12 L (15-37) U/L ALT 25 (14-59) U/L Alkaline Phosphatase 102 (46-116) U/L Total Protein 7.1 (6.4-8.2) g/dL Albumin 3.5 (3.4-5.0) g/dL Globulin 3.6 Albumin/Globulin Ratio 1.0 HCG, Quant (0-6) mIU/mL Urine Color (YELLOW) Urine Appearance (CLEAR) Urine pH (5.0-9.0) Ur Specific [place] (1.005-1.030) Urine Protein (NEGATIVE) Urine Glucose (UA) (NEGATIVE) Urine Ketones (NEGATIVE) Urine Occult Blood (NEGATIVE) Urine Nitrite (NEGATIVE) Urine Bilirubin (NEGATIVE) Urine Urobilinogen (0.2-1.0) mg/dL Ur Leukocyte Esterase (NEGATIVE) Urine RBC /HPF Urine WBC (0-5/HPF) /HPF Ur Epithelial Cells (NOT SEEN) /HPF Amorphous Sediment (NOT SEEN) /HPF Urine Bacteria (0-FEW/HPF) /HPF Urine Mucus (NOT SEEN) /LPF Urine HCG, Qual Blood Type A POSITIVE - Re-Assessments/Exams Free Text/Narrative Re-Assessment/Exam: 09/13/20 01:35 Patient laboratory evaluation is rather unremarkable. Serum quantitative hCG 724 Urinalysis trace blood noninfectious appearing. OB ultrasound limited 1 results from the audio/video technician initially reported as no signs of ectopic . No clearly identified intrauterine although there is some thickening of the lining otherwise unremarkable ultrasound. Radiological review to follow. Patient symptoms have resolved and she has not had any more cramping. She really is very early in the stages of with an hCG of only 724. Although we did not identify any within the uterus this is very early and may not be able to be identified yet. She has no vaginal bleeding and she is asymptomatic at this time. We will discharge her home at this time Tylenol for pain. Have her recheck in the clinic on Monday check for doubling of her hCG. Anything new or worse she is to recheck. She is comfortable with this plan and her questions were answered. Departure - Departure Time of Disposition: 19:49 Disposition: Home, Self-Care 01 Clinical Impression: First trimester , Abdominal cramping - Discharge Information Instructions: First Trimester of , [id number], Abdominal Pain During Forms: ED Department Discharge Additional Instructions: Contact your PCP on monday and get a repeat HCG and we are looking for doubling of the number. Your number in the ED was [phone]. Tylenol as needed for pain. Recheck immediately in the ED if any severe pain, vaginal bleeding or passing out. Otherwise recheck in the clinic after your labs drawn on monday. Sepsis Event Note (ED) - Evaluation Sepsis Screening Result: No Definite Risk - Focused Exam Vital Signs: Vital Signs Temp Pulse Resp BP Pulse Ox 09/12/20 19:55 97.4 F 68 16 133/66 100 09/12/20 16:08 97.1 F 88 14 142/63 H 100 I have read and agree with the documentation that has been completed regarding this visit. By signing this record, I attest that the documentation was completed in my physical presence and is an accurate record of the encounter.
--- NOTE | 2020-09-12 19:59 | US ---
PROCEDURE INFORMATION: Exam: US , Limited Exam date and time: 09/12/2020 6:48 PM Age: 25 years old Clinical indication: complicated by abdominal or pelvic pain; Lower; First trimester; Gestational age or lmp: ? ; ; Additional info: Abdominal pain hcg 425 TECHNIQUE: Imaging protocol: Real-time ultrasound of the maternal uterus with image documentation. Exam focused on the clinical indication. COMPARISON: No relevant prior studies available. FINDINGS: Gestation: No intrauterine identified. MATERNAL: Right adnexa: Right ovary measures 2.6 x 1.8 x 2.1 cm. Left adnexa: Nonvisualization of the left ovary. IMPRESSION: No intrauterine identified.
[2020-09-12 20:19] VITALS: BP 133/66; PULSE 68
[2020-09-15 11:46] LABS: C.TRACHOMATIS BY TMA Negative (Negative); N.GONORRHOEAE BY TMA Negative (Negative)
== END 2020-09-12 19:55 | disposition home or self-care (01) ==
LOC: DL.ED 15:48
DX: O99.891 Other specified diseases and conditions complicating pregnancy (principal); R10.30 Lower abdominal pain, unspecified
CPT/HCPCS: 36415; 76815; 76817; 80053; 81001; 81025; 84702; 85025; 86900; 86901; 87491; 87591; 99283; 99284-25

== ENCOUNTER 2020-10-15 17:41 | Emergency (ER) | payer MEDICAID ==
[2020-10-15 17:57] VITALS: PULSE 88
== END 2020-10-15 18:59 | disposition left against medical advice (07) ==
LOC: DL.ED 17:41
DX: Z53.21 Procedure and treatment not carried out due to patient leaving prior to being seen by health care provider (principal)
CPT/HCPCS: 81001

== ENCOUNTER 2020-10-16 07:23 | Emergency (ER) | payer MEDICAID ==
[2020-10-16 07:34] VITALS: BP 114/67; PULSE 74
[2020-10-16] MEDS ORDERED: Sodium Chloride 0.9% 1,000 ML IV ONE (08:11)
[2020-10-16 08:18] LABS: ANION GAP 13.2 mEq/L (7-13); CHLORIDE,CL 104 mmol/L (98-107); SODIUM,NA 141 mmol/L (136-145)
--- NOTE | 2020-10-16 08:24 | EDM.PDOC ---
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 The patient reports the cramping began at 1600 yesterday, at which time she presented to this facility, however she felt it was too busy so she went home. She states the cramping is constant in nature and radiates bilaterally into her lower back. Additionally, she attests to diarrhea. She denies fever, shaking chills, headache, palpitations, nausea, vomiting, dysuria, hematuria, vaginal bleeding, dyspareunia, vaginal odor, or abnormal vaginal discharge. The patient states she has not taken any medication or attempted any supportive cares for her cramping. She follows with Dr. Jarrett for obstetrical care with an appointment on November 02. Her last OB US was last week for confirmation and gestation dating. Pelvic Pain Score (Numeric/FACES): 7 - Related Data Allergies Allergy/AdvReac Type Severity Reaction Status Date / Time No Known Allergies Allergy Verified 10/16/20 08:48 Home Meds: Home Meds . 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: Musculoskeletal History: Reports: None Neurological History: Reports: None Psychiatric History: Reports: Anxiety, Bipolar, Depression Endocrine/Metabolic History: Reports: None Hematologic History: Reports: Anemia Immunologic History: Reports: None Oncologic (Cancer) History: Reports: None Dermatologic History: Reports: None - Infectious Disease History Infectious Disease History: Reports: None - Past Surgical History Head Surgeries/Procedures: Reports: None HEENT Surgical History: Reports: Adenoidectomy, Tonsillectomy GI Surgical History: Reports: Other (See Below) Other GI Surgeries/Procedures: abdominal surgery to remove foreign objects from stomach. Female Surgical History: Reports: None Endocrine Surgical History: Reports: None Social & Family History - Family History Family Medical History: No Pertinent Family History - Tobacco Use Tobacco Use Status *Q: Never Tobacco User Second Hand Smoke Exposure: No - Caffeine Use Caffeine Use: Reports: Soda - Recreational Drug Use Recreational Drug Use: No - Living Situation & Occupation Living situation: Reports: , with Family Occupation: Employed ED ROS GENERAL - Review of Systems Review Of Systems: Comprehensive ROS is negative, except as noted in HPI. ED EXAM - Physical Exam Exam: See Below Exam Limited By: No Limitations General Appearance: Alert, No Apparent Distress Eye Exam: Bilateral Eye: EOMI, Normal Inspection, PERRL (3mm) Throat/Mouth: Normal Inspection, Normal Oropharynx, Normal Voice, No Airway Compromise Head: Atraumatic, Normocephalic Neck: Normal Inspection, Supple, Non-Tender, Full Range of Motion Respiratory/Chest: No Respiratory Distress, Lungs Clear, Normal Breath Sounds, No Accessory Muscle Use, Chest Non-Tender Cardiovascular: Normal Peripheral Pulses GI/Abdominal Exam: Soft, No Distention, No Abnormal Bruit, Pelvis Stable, Tender (To palpation of LLQ), Abnormal Bowel Sounds (Hypoactive bowel sounds) Back Exam: Normal Inspection, Full Range of Motion. No: CVA Tenderness (L), CVA Tenderness (R) Extremities: Normal Inspection, Normal Range of Motion, Non-Tender, Normal Capillary Refill, No Pedal Edema Neurological: Alert, Oriented, CN II-XII Intact, Normal Cognition, Normal Gait, No Motor/Sensory Deficits Psychiatric: Normal Affect, Normal Mood Skin Exam: Warm, Dry, Intact, Normal Color, No Rash. No: Cyanosis, Diaphoretic, Erythema, Mottled, Pallor Course - Vital Signs Last Recorded V/S: Last Vital Signs Temp 98.6 F 10/16/20 07:33 Pulse 74 10/16/20 07:33 Resp 20 10/16/20 07:33 BP 114/67 10/16/20 07:33 Pulse Ox 98 10/16/20 07:33 - Orders/Labs/Meds Orders: Active Orders 24 hr Category Date Time Status CULTURE URINE [RM] Stat Lab 10/16/20 08:11 Received Labs: Laboratory Tests 10/16/20 10/16/20 10/16/20 Range/Units 07:50 07:50 07:50 WBC 6.6 (5.0-10.0) 10^3/uL RBC 5.12 (4.2-5.4) 10^6/uL Hgb 13.5 (12.0-16.0) g/dL Hct 41.2 (37.0-47.0) % MCV 80.5 (80-100) fL MCH 26.4 L (27.0-34.0) pg MCHC 32.8 L (33.0-35.0) g/dL Plt Count 237 (150-450) 10^3/uL Neut % (Auto) 60.3 (42.2-75.2) % Lymph % (Auto) 28.7 (20.5-50.1) % [place] % (Auto) 9.3 H (2-8) % Eos % (Auto) 1.2 (1.0-3.0) % Baso % (Auto) 0.5 (0.0-1.0) % Sodium 141 (136-145) mmol/L Potassium 4.2 (3.5-5.1) mmol/L Chloride 104 (98-107) mmol/L Carbon Dioxide 28 (21-32) mmol/L Anion Gap 13.2 H (7-13) mEq/L BUN 6 L (7-18) mg/dL Creatinine 0.59 (0.55-1.02) mg/dL Est Cr Clr Drug Dosing 120.58 mL/min Estimated GFR (MDRD) > 60 BUN/Creatinine Ratio 10.2 (No establ ref range) Glucose 92 (70-99) mg/dL Calcium 8.4 L (8.5-10.1) mg/dL Total Bilirubin 0.3 (0.2-1.0) mg/dL AST 10 L (15-37) U/L ALT 26 (14-59) U/L Alkaline Phosphatase 77 (46-116) U/L Total Protein 6.5 (6.4-8.2) g/dL Albumin 2.9 L (3.4-5.0) g/dL Globulin 3.6 Albumin/Globulin Ratio 0.81 HCG, Quant 284317 H (0-6) mIU/mL Urine Color (YELLOW) Urine Appearance (CLEAR) Urine pH (5.0-9.0) Ur Specific [place] (1.005-1.030) Urine Protein (NEGATIVE) Urine Glucose (UA) (NEGATIVE) Urine Ketones (NEGATIVE) Urine Occult Blood (NEGATIVE) Urine Nitrite (NEGATIVE) Urine Bilirubin (NEGATIVE) Urine Urobilinogen (0.2-1.0) mg/dL Ur Leukocyte Esterase (NEGATIVE) Urine RBC /HPF Urine WBC (0-5/HPF) /HPF Ur Epithelial Cells (NOT SEEN) /HPF Urine Bacteria (0-FEW/HPF) /HPF Urine Mucus (NOT SEEN) /LPF Urine HCG, Qual Urine Opiates Screen (NEGATIVE) Ur Oxycodone Screen (NEGATIVE) Urine Methadone Screen (NEGATIVE) Ur Barbiturates Screen (NEGATIVE) U Tricyclic Antidepress (NEGATIVE) Ur Phencyclidine Scrn (NEGATIVE) Ur Amphetamine Screen (NEGATIVE) U Methamphetamines Scrn (NEGATIVE) Urine MDMA Screen (NEGATIVE) U Benzodiazepines Scrn (NEGATIVE) Urine Cocaine Screen (NEGATIVE) U Marijuana (THC) Screen (NEGATIVE) Ethyl Alcohol < 3 (0) mg/dL 10/16/20 10/16/20 10/16/20 Range/Units 08:11 08:11 08:11 WBC (5.0-10.0) 10^3/uL RBC (4.2-5.4) 10^6/uL Hgb (12.0-16.0) g/dL Hct (37.0-47.0) % MCV (80-100) fL MCH (27.0-34.0) pg MCHC (33.0-35.0) g/dL Plt Count (150-450) 10^3/uL Neut % (Auto) (42.2-75.2) % Lymph % (Auto) (20.5-50.1) % [place] % (Auto) (2-8) % Eos % (Auto) (1.0-3.0) % Baso % (Auto) (0.0-1.0) % Sodium (136-145) mmol/L Potassium (3.5-5.1) mmol/L Chloride (98-107) mmol/L Carbon Dioxide (21-32) mmol/L Anion Gap (7-13) mEq/L BUN (7-18) mg/dL Creatinine (0.55-1.02) mg/dL Est Cr Clr Drug Dosing mL/min Estimated GFR (MDRD) BUN/Creatinine Ratio (No establ ref range) Glucose (70-99) mg/dL Calcium (8.5-10.1) mg/dL Total Bilirubin (0.2-1.0) mg/dL AST (15-37) U/L ALT (14-59) U/L Alkaline Phosphatase (46-116) U/L Total Protein (6.4-8.2) g/dL Albumin (3.4-5.0) g/dL Globulin Albumin/Globulin Ratio HCG, Quant (0-6) mIU/mL Urine Color Yellow (YELLOW) Urine Appearance Slightly cloudy (CLEAR) Urine pH 7.0 (5.0-9.0) Ur Specific [place] >= 1.030 (1.005-1.030) Urine Protein 30 H (NEGATIVE) Urine Glucose (UA) Negative (NEGATIVE) Urine Ketones Negative (NEGATIVE) Urine Occult Blood Trace-lysed H (NEGATIVE) Urine Nitrite Negative (NEGATIVE) Urine Bilirubin Negative (NEGATIVE) Urine Urobilinogen 0.2 (0.2-1.0) mg/dL Ur Leukocyte Esterase Small H (NEGATIVE) Urine RBC 0-5 /HPF Urine WBC 30-40 H (0-5/HPF) /HPF Ur Epithelial Cells Many H (NOT SEEN) /HPF Urine Bacteria Many H (0-FEW/HPF) /HPF Urine Mucus Few H (NOT SEEN) /LPF Urine HCG, Qual Positive Urine Opiates Screen Negative (NEGATIVE) Ur Oxycodone Screen Negative (NEGATIVE) Urine Methadone Screen Negative (NEGATIVE) Ur Barbiturates Screen Negative (NEGATIVE) U Tricyclic Antidepress Negative (NEGATIVE) Ur Phencyclidine Scrn Negative (NEGATIVE) Ur Amphetamine Screen Negative (NEGATIVE) U Methamphetamines Scrn Negative (NEGATIVE) Urine MDMA Screen Negative (NEGATIVE) U Benzodiazepines Scrn Negative (NEGATIVE) Urine Cocaine Screen Negative (NEGATIVE) U Marijuana (THC) Screen Negative (NEGATIVE) Ethyl Alcohol (0) mg/dL Meds: Medications Discontinued Medications Generic Name Dose Route Start Last Admin Trade Name Freq PRN Reason Stop Dose Admin Sodium Chloride 1,000 mls @ 999 mls/hr 10/16/20 08:11 10/16/20 08:20 Normal Saline IV 10/16/20 09:11 999 mls/hr .BOLUS ONE Administration - Re-Assessments/Exams Free Text/Narrative Re-Assessment/Exam: 10/16/20 NS 1L bolus initiated while labs pending. Patient verbalized complete resolution of cramping following IVF administration. Findings of examination and lab work reviewed with patient. Discussed supportive cares for dehydration during as well as red flag signs and symptoms which would warrant reevaluation. Patient advised to increase fluid intake, as well as try AZO given findings of UA. Patient verbalized understanding and agreement with the plan of care. Departure - Departure Time of Disposition: 09:15 Disposition: Home, Self-Care 01 Condition: Good Clinical Impression: First trimester , Dehydration, Abdominal cramping affecting - Discharge Information *PRESCRIPTION DRUG MONITORING PROGRAM REVIEWED*: Not Applicable *COPY OF PRESCRIPTION DRUG MONITORING REPORT IN PATIENT ELIANA: Not Applicable Instructions: Abdominal Pain During , [id number], First Trimester of , Sebb-rc-[id number], Care Forms: ED Department Discharge Additional Instructions: 1.) Keep obstetric appointment with Dr. Jarrett for November 02. 2.) Increase water intake; aim for 6-8 bottles daily. 3.) Eat a balanced diet and take a vitamin with folic acid and DHA during . 4.) Follow up with primary care provider, or return to the emergency department, with any return of symptoms despite good water and food intake. Sepsis Event Note (ED) - Evaluation Sepsis Screening Result: No Definite Risk - Focused Exam Vital Signs: Vital Signs Temp Pulse Resp BP Pulse Ox 10/16/20 07:33 98.6 F 74 20 114/67 98 - My Orders Last 24 Hours: My Active Orders 10/16/20 08:11 CULTURE URINE [RM] Stat - Assessment/Plan Last 24 Hours: My Active Orders 10/16/20 08:11 CULTURE URINE [RM] Stat
--- NOTE | 2020-10-19 10:51 | PCM.SN.2 ---
- Free Text/Narrative Note: Urine culture resulted with Group B Strep. Given , will treat with amoxicillin 875mg PO BID x7 days. Patient called by commercial loan underwriter to notify her of findings of urine culture as well as to discuss treatment. Patient verbalized understanding and agreement with the plan of care. [facility], per patient request.
== END 2020-10-16 09:40 | disposition home or self-care (01) ==
LOC: DL.ED 07:23
DX: O99.891 Other specified diseases and conditions complicating pregnancy (principal); O99.281 Endocrine, nutritional and metabolic diseases complicating pregnancy, first trimester; R10.31 Right lower quadrant pain; R10.32 Left lower quadrant pain; E86.0 Dehydration; Z3A.09 9 weeks gestation of pregnancy
CPT/HCPCS: 36415; 80053; 80305; 80307; 81001; 81025; 84702; 85025; 87086; 87088; 87186; 99283; 99284; J7030

== ENCOUNTER 2021-05-03 13:10 | Inpatient (IN) | payer MEDICAID ==
[2021-05-03] MEDS ORDERED: Penicillin G Potassium 5 MILLUNITS in Sodium Chloride 0.9% 100 ML IV ONE ×5 (14:30→15:20)
[2021-05-03] MEDS ORDERED: Methylergonovine 0.2 MG/1 ML Amp IM PRN (15:16)
[2021-05-03] MEDS ORDERED: Tranexamic Acid 1,000 MG in Sodium Chloride 0.9% 100 ML IV PRN (15:16)
[2021-05-03] MEDS ORDERED: Carboprost Tromethamine 250 MCG/1 ML Amp IM PRN (15:16)
[2021-05-03] MEDS ORDERED: Lidocaine 1% 30 ML SDV INJECT PRN (15:16)
[2021-05-03] MEDS ORDERED: Misoprostol 400 MCG (4 X 100 MCG TAB) RECTAL PRN (15:16)
[2021-05-03] MEDS ORDERED: Lactated Ringers 1,000 ML IV ONE (15:16)
[2021-05-03] MEDS ORDERED: Oxytocin/Normal Saline 30 UNIT/500 ML BAG IV SCH (15:30)
[2021-05-03] MEDS ORDERED: Lactated Ringers 1,000 ML IV SCH (15:30)
[2021-05-03] MEDS: Acetaminophen 325 MG Tab PO PRN (17:39)
[2021-05-03] MEDS: Ondansetron 4 MG/2 ML SDV IVPUSH PRN ×2 (19:12→22:27)
[2021-05-03] MEDS ORDERED: Sodium Bicarbonate 4.2% 2.5 MEQ/5 ML SDV ONE (19:26)
[2021-05-03] MEDS ORDERED: fentaNYL 100 MCG/2 ML SDV ONE (19:26)
[2021-05-03] MEDS ORDERED: EPINEPHrine 1 MG/ML SDV ONE (19:26)
--- NOTE | 2021-05-03 19:39 | HP ---
CHIEF COMPLAINT: Increasing frequency and intensity of contractions. HISTORY OF PRESENT ILLNESS: Elizabeth Goddard is a G4, P2-1-0-3, 25-year-old female at 37 weeks 6 days' gestation, confirmed with ultrasound at 8 weeks. This morning she had a appointment in clinic, where she had no complaints, concerns, or preeclamptic symptoms. She then got home and started having contractions around 11 am and came into triage. Upon arrival she denied any bleeding, leakage of fluid, or preeclampsia signs/symptoms. A NST was completed, and elevated blood pressures were discovered with the first at 141/88 and a second of 150/82. She then complained of a headache. PI labs confirmed preeclampsia with a protein to creatinine ratio of 724.4 without severe symptoms. She then was admitted for induction of labor. OBSTETRICAL HISTORY: Elizabeth had good care. has been significant for GBS bacteriuria treated with amoxicillin, Impaired glucose tolerance, passing her 3- hour oral glucose tolerance test, and history of preeclampsia. She has had 3 previous spontaneous vaginal deliveries, first one on 01/07/2014 at 40 weeks producing 8-pound 2-ounce female. Second one on 08/30/2017 at 35 weeks at 4 pounds with intrauterine growth restriction. Third was on 06/14/2019 at 38 weeks 1 day, 8 pounds 3 ounces. Delivery was complicated by preeclampsia. OB LABS: blood type A positive, antibody screen negative, rubella immune, GBS positive, RPR nonreactive, hepatitis B surface antigen nonreactive, HIV nonreactive. Gonorrhea, chlamydia negative. Hep C nonreactive. UTI in first trimester. Positive for group B strep for which she was provided amoxicillin MEDICATIONS: vitamin, Adderall, and Ritalin for first month of before she knew she was . Zyrtec, aspirin, and vitamin were used for a few weeks and then discontinued by the patient. ALLERGIES: No known allergies. PAST MEDICAL HISTORY: ADHD. PAST SURGICAL HISTORY: Tonsillectomy at 8 years old. SOCIAL HISTORY: Lives in [place] with 3 children and younger brother, whom she takes care of. Former smoker, quit on 09/07/2020, but still occasionally smokes twice a month. FAMILY HISTORY: Mother has bipolar disorder and was killed by a drunk route salesman and driver. Father has an abdominal aortic aneurysm, heart disease, and stomach cancer. Negative family history for bleeding and anesthesia problems. ROS: fully reviewed and notable for the above. PHYSICAL EXAMINATION: Vitals: 98.6 degrees Fahrenheit, heart rate 69, respiratory rate 18, blood pressure 141/88. heart tones baseline 130, reactive category 1. Contractions every 5 to 7 minutes. Cervical exam was 4 cm dilated. HEENT: Unremarkable. Lungs: Clear to auscultation bilaterally. Cardiac: Regular rate and rhythm. No murmur. Abdomen: Soft, gravid, nontender. Baby palpates vertex. No right upper quadrant pain. Extremities: Mild edema of bilateral ankles and hands. Skin: Well perfused, warm. No cyanosis. Neurologic: No focal deficits. ASSESSMENT: 1. Intrauterine at 37 weeks 6 days. Concurrent with 8 week ultrasound. 2. G4, P2-1-0-3. 3. Blood type A positive, rubella immune. 4. Group B Streptococcus positive, previous group B Streptococcus bacteriuria, and treated with amoxicillin. 5. History of preeclampsia. 6. Impaired glucose tolerance. 7. Preeclampsia PLAN: Induction of labor. Will rupture membranes and augment with Pitocin if needed. The patient does desire intrathecal for pain management. Will follow clinically and closely. Will also check blood pressure and monitor for worsening symptoms of preeclampsia. The patient was seen by myself and Dr. Jarrett. Assessment and plan are under advisement of Dr. Jarrett. seen and agreed-[facility] /[id number] MTDCarlos Alberto
[2021-05-03] MEDS ORDERED: Penicillin G Potassium 3 MILLUNITS in Sodium Chloride 0.9% 100 ML IV SCH (20:00)
--- NOTE | 2021-05-03 20:11 | PCM.SN.2 ---
- Free Text/Narrative Note: Intrathecal. Sitting position, sterile prep and drape. 1% lidocaine w bicarb for skinwheal to L2 L3 interspace, introducer, 24 ga Pencan x 1. Pos CSF, neg heme, neg parasthesia. 0.1 ml of 1:1000 pf epi, 20 mcg pf sufenta, 30 mcg pf fentanyl, 0.4 ml pf NS and 6 mg of 0.75% pf Marcaine injected after CSF aspiration. Pt to L lateral position. Procedure time 1944 to 2019
--- NOTE | 2021-05-03 20:24 | PN ---
DATE: 05/03/2021 SUBJECTIVE: The patient's contractions are getting stronger. She complains of mild headache, nothing severe. Denies any other headaches, visual changes, or upper abdominal pain. OBJECTIVE: heart tones detecting around the 140s to 150s range. Tocometer reveals contractions every 4 minutes on the monitor right now. Vaginal exam reveals her to be 5 cm, 75% effaced, 0 to -1 station, vertex suspected. Artificial rupture of membranes done after discussion with the patient. LABS: Did return protein-creatinine ratio of 724.4 with 100 protein on her dipstick. HELLP labs were negative with the CBC revealing a hemoglobin of 10.6 and platelets of 170. ASSESSMENT AND PLAN: Intrauterine at 37 and 6/7 weeks by 8-week ultrasound admitted in active labor. GBS positive bacteria with penicillin already given and now preeclampsia without severe features with history of preeclampsia previous , impaired glucose tolerance in a G4, P2-1-0-3, now status post NST followed by artificial rupture of membranes. PLAN: We will continue to follow clinically and closely. The patient understands and agrees with the above treatment plan. No signs or symptoms of severe preeclampsia noted at this time. Please see H and P done in conjunction with Graciela Garsia MS3 for further details as well. [facility] /[id number]
[2021-05-03] MEDS ORDERED: Simethicone 80 MG Tab.Chew PO PRN (21:53)
[2021-05-03] MEDS ORDERED: Benzocaine/Menthol 20%-0.5% Spray 78 GM Cannister TOP PRN (21:53)
[2021-05-03] MEDS ORDERED: Zolpidem 5 MG Tab PO PRN (21:53)
[2021-05-03] MEDS ORDERED: Oxytocin 10 Units/1 ML SDV IM PRN (21:53)
[2021-05-04] MEDS: Ibuprofen 800 MG Tab PO PRN ×3 (00:34→17:06)
[2021-05-04] MEDS: Acetaminophen 325 MG Tab PO PRN ×4 (01:43→16:06)
--- NOTE | 2021-05-04 02:24 | OBOUT ---
DATE: 05/03/2021 TIME: 1400 to 1420. REASON FOR NST: 1. Intrauterine at 37-6/7 weeks by 8-week ultrasound. 2. Active labor upon admission with contractions and cervical change. 3. Group B Streptococcus positive, bacteriuria. 4. Impaired glucose tolerance. 5. History of preeclampsia with elevated blood pressure 141/88 and heart rate 69 upon admission. 6. 4, para 2-1-0-3. NST INTERPRETATION: During this time period, heart tone baseline is approximately 130, at least two 15 x 15 beats per minute accelerations, making this strip reactive as well as reassuring. Tocometer reveals potential 3 to 4 contractions which the patient feels and is noted. ASSESSMENT: 1. Nonstress test, reactive and reassuring. 2. Tocometer reveals contractions. PLAN: Rapid COVID test has been ordered as well as CBC, and penicillin to be started with her GBS positive status. We will continue to follow her clinically and closely at this point in time as she is in active labor, and most likely we will consider augmentation with artificial rupture of membranes in the near future if the patient requests. Please see H and P done through and with Graciela Garsia, MS3. Also going to do a PIH panel. Recheck her blood pressure and follow closely given her history of preeclampsia in the past and elevated blood pressure today. We will watch for any signs symptoms of severe preeclampsia. None noted at this point in time. Awaiting labs. [facility] /[id number]
--- NOTE | 2021-05-04 04:03 | DEL ---
DATE: 05/03/2021 PREOPERATIVE DIAGNOSES: 1. Intrauterine at 37 weeks 6 days confirmed by 8-week ultrasound. 2. Active labor. 3. Group B Streptococcus positive, properly treated with penicillin. 4. Impaired glucose tolerance. 5. History of preeclampsia. 6. G4, P2-1-0-3. 7. Preeclampsia without severe features. 8. Blood type A positive, rubella immune. POSTOPERATIVE DIAGNOSES: 1. Intrauterine at 37 weeks 6 days confirmed by 8-week ultrasound. 2. Active labor. 3. Group B Streptococcus positive, properly treated with penicillin. 4. Impaired glucose tolerance. 5. History of preeclampsia. 6. G4, P2-1-0-4. 7. Nuchal cord x1 reduced bluntly. 8. Preeclampsia without severe features. 9. Blood type A positive, rubella immune. PROCEDURES PERFORMED: Nonstress test, Pitocin augmentation, artificial rupture of membranes, and subsequent spontaneous vaginal delivery. ANESTHESIA/ANALGESIA: Intrathecal. FINDINGS: Female. score 8 and 9. Weight pending. Nuchal cord x1 reduced bluntly at delivery. SUMMARY OF EVENTS: 25-year-old female with above-listed diagnoses, presented to triage for increasing frequency of contractions. She then was found to have 2 subsequent elevated blood pressures, the first being 141/88 and the second 150/82. PIH labs ruled in preeclampsia without significant features with a protein to creatinine ratio of 724.4. The patient was then admitted to Labor and Delivery for induction of labor. Her membranes were ruptured at 1712. Labor was allowed to progress and she received an intrathecal at 5 cm followed by Pitocin augmentation, and was complete within 1 hour. At that time, myself and Dr. Jarrett were called to the room, donned sterile gown and gloves. Within 1 push, baby was delivered with vertex in EDUARDO presentation. Nuchal cord x1 was reduced bluntly at delivery. Anterior and posterior shoulders with rest of infant delivered without difficulty. Mouth and nares were suctioned at perineum. Cord was doubly clamped and cut, and was resuscitated on mother's abdomen. Approximately 10 mL of cord blood was obtained for labs. Placenta was then delivered with gentle cord traction and fundal massage within 5 minutes. Perineum, vagina, and perirectal areas were examined, and a small 3 mm tear was found at the 6 o'clock position of the vaginal introitus. However, it was not bleeding and thus did not require repair. Fundal massage ensued and bleeding decreased. Mother and are currently stable at time of dictation. The patient was seen by myself and Dr. Jarrett. All procedures were under advisement of Dr. Jarrett. seen and agreed and I was present for procedure and performed it. editing done. [facility] /[id number] FAHEEM
[2021-05-04] MEDS: Docusate Sodium 100 MG Cap PO PRN ×2 (08:45→23:54)
[2021-05-04] MEDS: Prenatal Multivitamin with Calcium/Folic Acid/Iron Tab PO SCH (08:45)
--- NOTE | 2021-05-04 10:33 | PN ---
DATE: 05/04/2021 Hospital day #2 for spontaneous vaginal delivery. SUBJECTIVE: The patient is doing well. She reports minimal bleeding, pain under control with Tylenol and ibuprofen. She is passing gas, urinating, and walking without difficulty. She does report a mild headache that is relieved with Tylenol. Swelling of hands and ankles is stable. No vision changes. There are no concerns for worsening preeclampsia at this time. OBJECTIVE: Vital Signs: Temperature 98.9 degrees Fahrenheit, pulse 62, blood pressure 153/91, respiratory rate 16. HEENT: Unremarkable. Lungs: Clear to auscultation bilaterally. Cardiovascular: Regular rate and rhythm. No murmur. Abdomen: Soft and nontender. Uterus firm below umbilicus. EXTREMITIES: Moderate edema of ankles and hands bilaterally. SKIN: No rashes, cyanosis. Warm, well perfused. ASSESSMENT: 1. Intrauterine at 37 weeks 6 days, confirmed with 8 weeks' ultrasound, status post spontaneous vaginal delivery. 2. G4, P3-1-0-4. 3. Blood type A positive, rubella immune. 4. Group B Streptococcus positive, properly treated with penicillin. 5. Preeclampsia without severe features. 6. Impaired glucose tolerance. 7. History of preeclampsia. PLAN: Goals today will be to work of bonding between baby and mother, breast feeding, and ambulation. We will keep overnight until tomorrow with plan of tentative discharge tomorrow. She will be followed clinically and closely for worsening sings or symptoms of preeclampsia. We will complete CBC to check on platelets and hemoglobin today. The patient was seen by myself and Dr. Jarrett. Assessment and plan under advisement of Dr. Jarrett. Seen and agreed and editing done as needed-[facility] /[id number] FAHEEM
[2021-05-04] MEDS: Acetaminophen/oxyCODONE 325-5 MG Tab PO PRN ×2 (19:22→23:55)
[2021-05-05] MEDS: Ibuprofen 800 MG Tab PO PRN (02:25)
[2021-05-05] MEDS: Acetaminophen/oxyCODONE 325-5 MG Tab PO PRN (09:03)
[2021-05-05] MEDS: Docusate Sodium 100 MG Cap PO PRN (09:06)
[2021-05-05] MEDS: Prenatal Multivitamin with Calcium/Folic Acid/Iron Tab PO SCH (09:06)
[2021-05-05] MEDS ORDERED: EPINEPHrine 1 MG/ML SDV ONE (09:59)
[2021-05-05] MEDS ORDERED: Sodium Bicarbonate 4.2% 2.5 MEQ/5 ML SDV ONE (09:59)
[2021-05-05] MEDS ORDERED: Sodium Chloride 0.9% 20 ML SDV ONE (09:59)
[2021-05-05] MEDS ORDERED: fentaNYL 100 MCG/2 ML SDV ITHECAL ONE (09:59)
[2021-05-05 11:15] VITALS: BP 139/78; PULSE 58
--- NOTE | 2021-05-05 12:24 | DISCH ---
ADMIT DIAGNOSES: 1. Intrauterine , 37 and 7 weeks' gestation, confirmed by 8-week ultrasound. 2. Active labor. 3. Group B Streptococcus positive. 4. Impaired glucose tolerance. 5. Preeclampsia without severe features. 6. History of preeclampsia. 7. G4, P2-1-0-3. DISCHARGE DIAGNOSES: 1. Intrauterine , 37 and 7 weeks' gestation, confirmed by 8-week ultrasound, status post spontaneous vaginal delivery. 2. Active labor. 3. Group B Streptococcus positive, properly treated with penicillin. 4. Nuchal cord x1 reduced bluntly at . 5. Impaired glucose tolerance. 6. Preeclampsia without severe features. 7. History of preeclampsia. 8. G4, P3-1-0-4. PROCEDURES PERFORMED: Spontaneous vaginal delivery without repair under intrathecal anesthesia, Pitocin augmentation, artificial rupture of membranes. HISTORY OF PRESENT ILLNESS: 25-year-old female with the above-listed diagnoses presented to the clinic for increasing frequency of contractions. In triage, 2 elevated blood pressures were noted and PIH labs confirmed preeclampsia with protein creatinine ratio of 724.4 without severe symptoms. She then was admitted for induction of labor. The patient previously had great care only complicated by GBS bacteriuria treated with amoxicillin, impaired glucose tolerance, passing a 3- hour oral glucose tolerance, and history of preeclampsia. LABS: Significant with blood type A positive, antibody screen negative, rubella immune, GBS positive, properly treated with penicillin. RPR nonreactive. Hepatitis B surface antigen nonreactive. HIV nonreactive. Gonorrhea, chlamydia negative. Hep C nonreactive. UTI in first trimester, treated. SUMMARY OF HOSPITAL COURSE: On admission, the patient's membranes were ruptured followed by Pitocin augmentation and she was complete within 1 hour. At that time, a baby girl was delivered via spontaneous vaginal delivery with APGARs of 8 and 9 and weight of 3355 g. Delivery was significant for a nuchal cord x1 reduced bluntly at delivery. Both baby and mother did well directly after delivery. On hospital day #1, mother had some pain with uterine contractions while along with a headache, however, this was controlled with Tylenol, ibuprofen, and Percocet. On day #2, she had the same complaints but was ambulating, urinating, and passing gas without difficulty, and was wishing to discharge home. She has no concerns for her . PHYSICAL EXAMINATION: Vital Signs: Temp 98.1 degrees Fahrenheit, pulse 60, blood pressure 145//75, respiratory rate 14, O2 sat 99%. HEENT: Unremarkable. Heart: S1, S2. Regular rate and rhythm. Lungs: Clear to auscultation bilaterally. Abdomen: soft, nontender with firm uterus below umbilicus. Extremities: Edema of hands and ankles, improving. LABORATORY DATA: Admission hemoglobin 10.6 and platelets 170. Discharge hemoglobin 9.7, platelets 151. Admission AST 15, ALT 15, creatinine 0.66. Protein to creatinine ratio is 724.4. CONDITION ON DISCHARGE COMPARED TO CONDITION ON ADMISSION: Good. DISCHARGE INSTRUCTIONS: No lifting more than 20 pounds. Pelvic rest for next 6 weeks with discussion of immediate return of fertility. Return to emergency room if temperature greater than 100.4, discharge is foul smelling, breasts become red or tender, or vaginal bleeding increases. DISCHARGE MEDICATIONS: Ibuprofen and Tylenol for pain. FOLLOWUP: 6 weeks for and Monday, 05/07, at 11:30 a.m. for first check. The patient was seen by myself and Dr. Jarrett. Assessment and plan under advisement of Dr. Jarrett. seen and agreed-[facility] [place] /[id number] [place]
== END 2021-05-05 10:00 | disposition home or self-care (01) | DRG 807 ==
LOC: DL.OBCHECK 13:10 → DL.OB 14:18 → INTOOBSV 14:18 → OBSVTOIN 21:37 → DL.OB 21:37 → DL.MS 05-04 22:44
PROVIDERS: ADMIT Family Medicine; ATTEND Family Medicine
PROC: 10E0XZZ Delivery of Products of Conception, External Approach (ICD-10-PCS; principal; 2021-05-03)
PROC: 10907ZC Drainage of Amniotic Fluid, Therapeutic from Products of Conception, Via Natural or Artificial Opening (ICD-10-PCS; 2021-05-03)
PROC: 3E0R3BZ Introduction of Anesthetic Agent into Spinal Canal, Percutaneous Approach (ICD-10-PCS; 2021-05-03)
DX: O14.04 Mild to moderate pre-eclampsia, complicating childbirth (principal); Z37.0 Single live birth; Z3A.37 37 weeks gestation of pregnancy; O99.814 Abnormal glucose complicating childbirth; O99.824 Streptococcus B carrier state complicating childbirth; O69.81X0 Labor and delivery complicated by cord around neck, without compression, not applicable or unspecified; Z20.822 Contact with and (suspected) exposure to COVID-19
CPT/HCPCS: 36415; 59409; 81003; 82565; 82570; 83615; 84156; 84450; 84460; 84520; 84550; 85025; 85027; A9270-GY; J0171; J2405; J2540; J2590; J3010; J7120; U0002